=== PATIENT | female | born 1950 | race Hispanic/Latino ===

== ENCOUNTER 2016-07-24 08:27 | Day surgery (SDC) | payer MEDICARE ==
[~2016-07-24] VITALS: Ht 165.1 cm; Wt 74.8 kg
[~2016-07-24 08:27] MED LIST: ACTONEL PO; ASPIRIN EC81 MG PO; ATENOLOL25 MG PO; CALCIUM 1200 PO; COQ10200 MG PO; GLUCOSAMINE & C1 CAP PO; GNP MELATONIN3 MG PO; HYDROCHLORO25 MG/TAB PO; LISINOPRIL10 MG PO; SIMVASTATIN20 MG PO
[2016-07-24 12:03] VITALS: BP 112/64
== END 2016-07-24 11:50 | disposition home or self-care (01) ==
LOC: ENDO 08:27
PROVIDERS: ATTEND Surgery
PROC: 0DJD8ZZ Inspection of Lower Intestinal Tract, Via Natural or Artificial Opening Endoscopic (ICD-10-PCS; principal; 2016-07-24)
DX: Z12.11 Encounter for screening for malignant neoplasm of colon (principal); Q43.8 Other specified congenital malformations of intestine; I10 Essential (primary) hypertension; Z86.010 Personal history of colon polyps

== ENCOUNTER 2016-12-11 10:51 | Emergency (ER) | payer MEDICARE, OTHER ==
[~2016-12-11] VITALS: Ht 165.1 cm; Wt 75.0 kg
[2016-12-11 12:00] LABS: HEMOGLOBIN 13.8 g/dl (12.0-16.0); MEAN CELL VOLUME 90.5 fL CALC (80.0-100.0); MEAN CORPUSCULAR HGB 30.5 pG CALC (26.0-32.0); MEAN CORPUSCULAR HGB CONC 33.7 g/L CALC (32.0-36.0); NEUT# 1.06 thou/uL (2.00-7.15); RED BLOOD COUNT 4.53 mill/uL (4.20-5.60); RED CELL DISTRI WIDTH 12.5 % (11.5-15.5)
[2016-12-11 12:07] LABS: ALBUMIN 4.4 g/dL (3.2-5.0); ALKALINE PHOSPHATASE 102 u/l (38-126); ANION GAP 15 (6-22 (CALC)); BILIRUBIN, TOTAL 0.3 mg/dL (0.0-1.4); BUN 9 mg/dL (8-23); BUN/CREATININE RATIO 15 (12-20 (CALC)); CALCIUM 9.2 mg/dL (8.4-10.2); CARBON DIOXIDE 25 mmol/l (22-30); CHLORIDE 104 mmol/l (95-108); CREATININE 0.6 mg/dL (0.5-1.0); GFR > 60 ML/MIN (>=60 (CALC)); GFR FOR AFR.AMER. > 60 ML/MIN (>=60 (CALC)); GLUCOSE 104 mg/dL (82-115); POTASSIUM 4.3 mmol/l (3.5-5.1); SGOT/AST 76 u/l (9-36); SGPT/ALT 94 u/l (11-66); SODIUM 139 mmol/l (137-146)
[2016-12-11] MEDS ORDERED: OMEPRAZOLE10 MG PO (12:15)
[2016-12-11] MEDS ORDERED: CIPROFLOXACN500 MG PO (12:17)
[2016-12-11 12:19] LABS: MYOGLOBIN 34 ng/mL (0 - 62)
[2016-12-11 12:28] LABS: URINE BILIRUBIN - DIPSTICK NEGATIVE (NEGATIVE); URINE BLOOD DIPSTICK NEGATIVE (NEGATIVE); URINE CLARITY CLEAR; URINE COLOR YELLOW; URINE GLUCOSE - DIPSTICK NEGATIVE (NEGATIVE); URINE KETONE NEGATIVE (NEGATIVE); URINE LEUK ESTERASE NEGATIVE (NEGATIVE); URINE NITRITE - DIPSTICK NEGATIVE (Negative); URINE PROTEIN - DIPSTICK NEGATIVE (NEG-TRACE); URINE SPECIFIC GRAVITY <=1.005; URINE UROBILINOGEN - DIPSTICK 0.2 E.U./dL (0.2)
[2016-12-11] MEDS ORDERED: MUPIROCIN2 % EX (12:57)
[2016-12-11] MEDS ORDERED: BACTRIM DS1 TAB PO (12:57)
[2016-12-11 14:08] VITALS: BP 134/76
== END 2016-12-11 14:08 | disposition home or self-care (01) ==
LOC: ED 10:51
PROVIDERS: Family Medicine
DX: R07.89 Other chest pain (principal); R51 Headache; I10 Essential (primary) hypertension; I65.29 Occlusion and stenosis of unspecified carotid artery
CPT/HCPCS: Q9967

== ENCOUNTER → 2018-07-15 | Outpatient (REF) | payer MEDICARE, OTHER ==
[~2018-07-15] MED LIST changes: +BACTRIM DS1 TAB PO; +CIPROFLOXACN500 MG PO; +MUPIROCIN2 % EX; +OMEPRAZOLE10 MG PO
[2018-07-15 09:47] LABS: HEMATOCRIT 42.3 % (37.0-47.0); HEMOGLOBIN 13.4 g/dl (12.0-16.0); MEAN CELL VOLUME 95.9 fL CALC (80.0-100.0); MEAN CORPUSCULAR HGB 30.4 pG CALC (26.0-32.0); MEAN CORPUSCULAR HGB CONC 31.7 g/L CALC (32.0-36.0); NEUT# 2.94 thou/uL (2.00-7.15); RED BLOOD COUNT 4.41 mill/uL (4.20-5.60); RED CELL DISTRI WIDTH 12.5 % (11.5-15.5)
[2018-07-15 11:52] LABS: ANION GAP 15 (6-22 (CALC)); BUN 21 mg/dL (8-23); BUN/CREATININE RATIO 30 (12-20 (CALC)); CARBON DIOXIDE 25 mmol/l (22-30); CHLORIDE 105 mmol/l (95-108); CREATININE 0.7 mg/dL (0.5-1.0); GFR > 60 ML/MIN (>=60 (CALC)); GFR FOR AFR.AMER. > 60 ML/MIN (>=60 (CALC)); SODIUM 141 mmol/l (137-146)
== END | disposition home or self-care (01) ==
LOC: LAB 08:07
PROVIDERS: ATTEND Nurse Practitioner Family
DX: I10 Essential (primary) hypertension (principal)